=== PATIENT | male | born 1940 | race Caucasian/White ===

== ENCOUNTER 2017-06-16 08:38 | Emergency (ER) | payer MEDICARE ==
--- NOTE | 2017-06-16 10:06 | ED ---
Lower Extremity - History of Current Complaint Chief Complaint: EDExtremityLower Stated Complaint: PAIN IN BOTH LEGS Time Seen by Provider: 06/16/17 08:51 Pain Intensity: 9 - Allergies/Home Medications Allergies/Adverse Reactions: Allergies Allergy/AdvReac Type Severity Reaction Status Date / Time No Known Allergies Allergy Verified 06/16/17 08:45 Home Medications: Home Medications Cod Liver Oil [Cod Liver Oil W/Vitamins] 3 cap PO DAILY 06/16/17 [History Confirmed 06/16/17] Embrel 25 mg INJ TUFR 06/16/17 [History Confirmed 06/16/17] Fenofibrate(NF) [Tricor(NF)] 145 mg PO DAILY 06/16/17 [History Confirmed ] Folic Acid TAB* [Folvite TAB*] 1 mg PO DAILY 06/16/17 [History Confirmed ] Levothyroxine TAB* [Synthroid TAB*] 50 mcg PO 06/16/17 [History] Methotrexate TAB* 7.5 mg PO SA 06/16/17 [History Confirmed 06/16/17] Multiple Vitamins W/ Minerals [Centrum Silver 50+Men] 1 tab PO 06/16/17 [History ] PMH/Surg Hx/FS Hx/Imm Hx Infectious Disease History: No Infectious Disease History: Denies: Traveled Outside the [place] in Last 30 Days - Social History Alcohol Use: Rare Substance Use Type: Reports: None Smoking Status (MU): Former Smoker Physical Exam Vital Signs On Initial Exam: Initial Vitals Temp Pulse Resp BP Pulse Ox 97.4 F 63 15 173/77 97 06/16/17 08:42 06/16/17 08:42 06/16/17 08:42 06/16/17 08:42 06/16/17 08:42 - Petra Coma Scale Coma Scale Total: 15 Diagnostics - Vital Signs Vital Signs Temp Pulse Resp BP Pulse Ox 06/16/17 08:42 97.4 F 63 15 173/77 97 - Laboratory Result Diagrams: 06/16/17 10:29 06/16/17 10:29 Lab Statement: Any lab studies that have been ordered have been reviewed, and results considered in the medical decision making process. Lower Extremity Course/Dx - Diagnoses Provider Diagnoses: Arthritis, Muscle pain, Muscle spasms of both lower extremities Discharge - Discharge Plan Condition: Stable Disposition: HOME Patient Education Materials: Muscle Spasm (ED), Arthritis (ED), Musculoskeletal Pain (ED) Referrals: Jim MARCELO,Lito Rodriguez. [Primary Care Provider] - Additional Instructions: Continue naproxen for the next few days as desired. muscle relaxer to help with spasms. tramadol if needed for severe pain. Do not drive while taking medication. Follow up with PCP. Any new or worsening symptoms please seek medical attention.
[2017-06-16 10:48] LABS: Hematocrit 44 % (42-52); Hemoglobin 14.8 g/dl (14.0-18.0); Mean Corpuscular HGB Conc 34 g/dl (31-36); Mean Corpuscular Hemoglobin 32 pg (27-31); Mean Corpuscular Volume 94 fL (80-94); Mean Platelet Volume 8 um3 (7.4-10.4); Red Blood Count 4.61 10^6/ul (4.0-5.4); Red Cell Distribution Width 14 % (10.5-15); White Blood Count 6.5 10^3/ul (3.5-10.8)
[2017-06-16] MEDS ORDERED: Cyclobenzaprine TAB* 10 MG PO ONE (11:01)
[2017-06-16 11:02] LABS: ALT 24 U/L (7-52); AST 23 U/L (13-39); Albumin 4.4 g/dL (3.2-5.2); Alkaline Phosphatase 69 U/L (34-104); Anion Gap 6 mmol/L (2-11); Blood Urea Nitrogen 22 mg/dL (6-24); C Reactive Protein < 1.00 mg/L (< 5.00); CO2 Carbon Dioxide 26 mmol/L (22-32); Calcium 9.8 mg/dL (8.6-10.3); Chloride 104 mmol/L (101-111); Creatine Kinase 124 U/L (10-223); EGFR African American 60.1 (>60); EGFR Non-African American 46.7 (>60); Globulin 3.2 g/dL (2-4); Glucose 113 mg/dL (70-100); Magnesium 2.2 mg/dL (1.9-2.7); Potassium 4.5 mmol/L (3.5-5.0); Sodium 136 mmol/L (133-145); Total Protein 7.6 g/dL (6.4-8.9)
[2017-06-16 11:24] LABS: Erythrocyte Sed Rate 11 mm/Hr (0-40)
[2017-06-16 12:37] VITALS: BP 189/87
== END 2017-06-16 12:38 | disposition home or self-care (01) ==
LOC: ED 08:38
DX: M19.90 Unspecified osteoarthritis, unspecified site (principal); M79.1 Myalgia; M62.831 Muscle spasm of calf
CPT/HCPCS: 36415; 80053; 82306; 82550; 83735; 85025; 85652; 86140; 86618; 99282; A9270-GY

== ENCOUNTER 2019-01-15 08:58 | Day surgery (SDC) | payer MEDICARE ==
[~2019-01-15 08:58] MED LIST: Acetaminophen TAB* 325 MG PO PRN; Buffered Lidocaine 1% SYRIN* 1 ML/SYRINGE INTRADERM ONE
[2019-01-15] MEDS ORDERED: Midazolam* 1 MG/ML 2 ML VIAL (2 MG) ONE (11:01)
[2019-01-15] MEDS ORDERED: fentaNYL* 50 MCG/ML 2 ML VIAL (100 MCG VIAL) ONE (11:01)
[2019-01-15 12:10] VITALS: BP 130/67
[2019-01-15] MEDS ORDERED: Lidocaine 2% EPI 1:200000 MPF*10-20 ML VIAL ONE (13:16)
[2019-01-15] MEDS ORDERED: Lidocaine 1%* 5 ML VIAL ONE (13:16)
[2019-01-15] MEDS ORDERED: Phenylephrine OPHTH SOL 2.5%* 2 ML ONE (13:16)
[2019-01-15] MEDS ORDERED: Neomycin/Polymy/Dex OPTH.SUSP* MAXITROL 0.1% 5 ML ONE (13:16)
[2019-01-15] MEDS ORDERED: Cyclopentolate 1% OPTH.SOL* 2 ML BTL ONE (13:16)
[2019-01-15] MEDS ORDERED: acetaZOLAMIDE TAB* 250 MG ONE (13:16)
[2019-01-15] MEDS ORDERED: Povidone Iodine 5% OPTH* 30 ML BTL ONE (13:16)
[2019-01-15] MEDS ORDERED: Proparacaine 0.5% OPHTH.SOL* 15 ML BTL ONE (13:16)
[2019-01-15] MEDS ORDERED: Ketorolac 0.5% OPHTH (NF) 0.5 % 5 ML BTL ONE (13:16)
--- NOTE | 2019-01-15 13:48 | OP ---
OPERATIVE NOTE: DATE OF OPERATION: 01/15/19 DATE OF : 42 SURGEON: Matty Myrick M.D. PREOPERATIVE DIAGNOSIS: Cataract, left eye. POSTOPERATIVE DIAGNOSIS: Cataract, left eye. OPERATIVE PROCEDURE: Extracapsular cataract extraction with intraocular lens implant, left eye. PROCEDURE: The patient was brought to the operating room after being given 1/2 % Alcaine with epinephrine drops in the preoperative area. The eye was prepped and draped in the usual sterile fashion. Sterile drape and eyelid speculum were placed. Again, topical 1/2% Alcaine with epinephrine was given. A paracentesis incision was made at the 3 o'clock position with the No.75 blade. Clear cornea incision 2.2 x 2.2-mm was created at the 6 o'clock position starting at the anterior limbus using the 2.2-mm keratome. The anterior chamber was irrigated with 0.4 mL of 1% non-preservative intracameral lidocaine and filled with DisCoVisc. A capsulorrhexis was completed using the cystotome and the Utrata forceps. Hydrodissection was performed with balanced salt solution. The lens nucleus was removed with the Phacoemulsification handpiece without incident. Cortex was removed with the irrigation-aspiration handpiece. The capsular bag was re-inflated using DisCoVisc and an [id number] 22 implant was inserted with the shooter. The irrigation-aspiration handpiece was used to remove all residual DisCoVisc. The eye was refilled with balanced salt solution and the wound checked and found to be watertight. Topical Maxitrol drops were given. the pupil was small so a malugyn ring was placed prior to capsulorrhexis and removed after insertion of iol. indication for complex cataract surgery pupil abnormality requiring pupil dilation device [id number]/[facility] #: [id number] [facility] CENTERJonas
--- NOTE | 2019-01-15 15:13 | OP ---
OPERATIVE REPORT: ADDENDUM: PROCEDURE: I used Malyugin ring to dilate the pupil prior to capsulorrhexis because of a small pupil. This was removed after insertion of the lens. Indication for complex cataract surgery: Pupil abnormalities requiring pupil dilation device. [id number]/[facility] #: [id number] [facility]
== END 2019-01-15 12:20 | disposition home or self-care (01) ==
LOC: OREAST 08:58
PROVIDERS: ATTEND Specialist
DX: H25.812 Combined forms of age-related cataract, left eye (principal); H21.562 Pupillary abnormality, left eye; H35.3131 Nonexudative age-related macular degeneration, bilateral, early dry stage; I10 Essential (primary) hypertension; Z87.891 Personal history of nicotine dependence; K21.9 Gastro-esophageal reflux disease without esophagitis; E03.9 Hypothyroidism, unspecified; M06.9 Rheumatoid arthritis, unspecified
CPT/HCPCS: A9270-GY; J2250; J3010; V2632

== ENCOUNTER 2019-01-29 11:50 | Day surgery (SDC) | payer MEDICARE ==
[2019-01-29] MEDS ORDERED: Ketorolac 0.5% OPHTH (NF) 0.5 % 5 ML BTL ONE (12:19)
[2019-01-29] MEDS ORDERED: acetaZOLAMIDE TAB* 250 MG ONE (12:19)
[2019-01-29] MEDS ORDERED: Cyclopentolate 1% OPTH.SOL* 2 ML BTL ONE (12:19)
[2019-01-29] MEDS ORDERED: Povidone Iodine 5% OPTH* 30 ML BTL ONE (12:19)
[2019-01-29] MEDS ORDERED: Neomycin/Polymy/Dex OPTH.SUSP* MAXITROL 0.1% 5 ML ONE (12:19)
[2019-01-29] MEDS ORDERED: Lidocaine 1%* 5 ML VIAL ONE (12:19)
[2019-01-29] MEDS ORDERED: Lidocaine 2% EPI 1:200000 MPF*10-20 ML VIAL ONE (12:19)
[2019-01-29] MEDS ORDERED: Phenylephrine OPHTH SOL 2.5%* 2 ML ONE (12:19)
[2019-01-29] MEDS ORDERED: Proparacaine 0.5% OPHTH.SOL* 15 ML BTL ONE (12:19)
[2019-01-29] MEDS ORDERED: Midazolam* 1 MG/ML 2 ML VIAL (2 MG) ONE (14:44)
[2019-01-29 15:56] VITALS: BP 155/83
--- NOTE | 2019-01-29 22:24 | OP ---
DATE OF OPERATION: 01/29/19 - [facility] DATE OF : 42 SURGEON: Matty Myrick M.D. PREOPERATIVE DIAGNOSIS: Cataract, right eye. POSTOPERATIVE DIAGNOSIS: Cataract, right eye. OPERATIVE PROCEDURE: Extracapsular cataract extraction with intraocular lens implant, right eye. DESCRIPTION OF PROCEDURE: The patient was brought to the operating room after being given 1/2% Alcaine with epinephrine drops in the preoperative area. The eye was prepped and draped in the usual sterile fashion. Sterile drape and eyelid speculum were placed. Again, topical 1/2% Alcaine with epinephrine was given. A paracentesis incision was made at the 9 o'clock position with the No.75 blade. Clear cornea incision 2.2 x 2.2-mm was created at the 12 o'clock position starting at the anterior limbus using the 2.2-mm keratome. The anterior chamber was irrigated with 0.4 mL of 1% non-preservative intracameral lidocaine and filled with DisCoVisc. A capsulorrhexis was completed using the cystotome and the Utrata forceps. Hydrodissection was performed with balanced salt solution. The lens nucleus was removed with the Phacoemulsification handpiece without incident. Cortex was removed with the irrigation-aspiration handpiece. The capsular bag was re-inflated using DisCoVisc and an SN60WF 21.5 implant was inserted with the shooter. A Malyugin ring was used to dilate the pupil prior to capsulorrhexis because of a very small pupil, this was removed after insertion of the lens. The irrigation-aspiration handpiece was used to remove all residual DisCoVisc. The eye was refilled with balanced salt solution and the wound checked and found to be watertight. Topical Maxitrol drops were given. The indication for complex cataract surgery: pupil abnormalities requiring pupil dilation device. [id number]/[facility] #: [id number] [facility]
== END 2019-01-29 15:35 | disposition home or self-care (01) ==
LOC: OREAST 11:50
PROVIDERS: ATTEND Specialist
DX: H25.811 Combined forms of age-related cataract, right eye (principal); H35.3131 Nonexudative age-related macular degeneration, bilateral, early dry stage; Q13.2 Other congenital malformations of iris; M06.9 Rheumatoid arthritis, unspecified; K21.9 Gastro-esophageal reflux disease without esophagitis; E78.00 Pure hypercholesterolemia, unspecified; Z87.891 Personal history of nicotine dependence; I10 Essential (primary) hypertension; E03.9 Hypothyroidism, unspecified
CPT/HCPCS: A9270-GY; J2250; V2632